=== PATIENT | male | born 1990 | race Hispanic/Latino ===

== ENCOUNTER 2023-01-21 13:20 | Emergency (ER) | payer OTHER, SELFPAY ==
[2023-01-21 13:23] VITALS: BP 130/84; PULSE 84; RESP 18; TEMP 36.6; O2SAT 98; BMI 19.2
[2023-01-21] MEDS: LIDOCAINE/PRILOCAINE 5 GM TOP (14:04)
[2023-01-21] MEDS: TET,DIPH,PERTUSS(ACELL),VAC/PF 0.5 ML SYRINGE IM (14:05)
[2023-01-21] MEDS: LIDOCAINE 2% INJ SDV 5ML 5 ML (14:11)
--- NOTE | 2023-01-21 14:20 | ED_ITS ---
HPI - Wound/Laceration <Kriss Ghotra PA-C - Last Filed: 01/21/23 15:56> General Chief Complaint: Wound/Laceration Stated Complaint: [facility] Time Seen by Provider: 01/21/23 13:29 Source: patient Mode of arrival: Ambulatory History of Present Illness HPI narrative: 32-year-old male presents with concern for facial injury sustained at work. Patient works for a [employer] and he was pounding and approximately 1/2 inch diameter approximately 6 ft tall metal breanne into the ground with a fence post tool. On 1 of the pounding hits he missed capturing the top of the breanne and it smashed forward and caught his eyebrow just below his right eyebrow causing a laceration. He states that the metal breanne is slightly tapered at the top and not flat. He does have some pain at the location of the injury but states he has not had any blurry vision and has been moving his eyes normally. Denies numbness or tingling of the face, dizziness, lightheadedness, global headache or vomiting or any other symptoms. Presents today with L and I paperwork. Patient acknowledges nausea just prior to initiating repair. Onset (ago): hour(s) (1-2) Location: face Patient tetanus UTD: No (provided today) Associated symptoms: nausea/vomiting (nausea only) Related Data Allergies Allergy/AdvReac Type Severity Reaction Status Date / Time No Known Drug Allergies Allergy Verified 01/21/23 13:23 Review of Systems <Kriss Ghotra PA-C - Last Filed: 01/21/23 15:56> Review of Systems Narrative: See HPI Patient History <Kriss Ghotra PA-C - Last Filed: 01/21/23 15:56> Social History Smoking Status: Current some day smoker Smoking Status: Current some day smoker tobacco type: cigarettes and vaping Substance Use Type: does not use Exam <Kriss Ghotra PA-C - Last Filed: 01/21/23 15:56> Narrative Exam Narrative: GENERAL: 32 year old patient appears stated age. Well-developed patient, in mild distress. HEAD: There is a 1 cm horizontal laceration with bleeding controlled with a slight upside down Nike swoosh at the medial aspect; located just inferior to the patient's right medial eyebrow. It is superior to the eyelid and does not penetrate to the globe. Otherwise Atraumatic. Normocephalic. Facial bones are nontender without bruising or deformity EYES: Pupils equal round and reactive. Extraocular motions intact. No scleral icterus. No injection or drainage. ENT: Nasal bones are nontender Nose without bleeding, purulent drainage. Throat without erythema, tonsillar hypertrophy or exudate. Airway patent. NECK: Trachea midline. Non tender CARDIOVASCULAR: Regular rate and rhythm without murmurs, gallops, or rubs. RESPIRATORY: Clear to auscultation. Breath sounds equal bilaterally. No wheezes, rales, or rhonchi. EXTREMITIES: No edema or joint tenderness. NEURO: AOx3. Cranial nerves II-XII intact SKIN: See head. No rash or erythema of visible areas Initial Vital Signs Initial Vital Signs: Vital Signs Temperature 97.9 F 01/21/23 13:23 Pulse Rate 84 01/21/23 13:23 Respiratory Rate 18 01/21/23 13:23 Blood Pressure 130/84 01/21/23 13:23 Pulse Oximetry 98 01/21/23 13:23 Oxygen Delivery Method Room Air 01/21/23 13:23 <Liane Pena MD - Last Filed: 01/21/23 16:24> Initial Vital Signs Initial Vital Signs: Vital Signs Temperature 97.9 F 01/21/23 13:23 Pulse Rate 84 01/21/23 13:23 Respiratory Rate 18 01/21/23 13:23 Blood Pressure 130/84 01/21/23 13:23 Pulse Oximetry 98 01/21/23 13:23 Oxygen Delivery Method Room Air 01/21/23 13:23 Procedures <Kriss Ghotra PA-C - Last Filed: 01/21/23 15:56> Laceration Repair Laceration 1: Time of procedure: 14:40 Site: face (inferior Left medial eyebrow) Size (cm): 1 Description: linear (curvilinear) Depth: simple, single layer Local Anesthetic: lidocaine 2% and other anesthetic (topical lidocaine/prilocaine) Amount of anesthesia used (mL): 2.5 Pre-repair: wound explored and irrigated extensively Skin layer closed with: nylon Skin layer suture size: 6-0 Number of sutures: 4 Technique: simple, interrupted Course <Kriss Ghotra PA-C - Last Filed: 01/21/23 15:56> Orders Ordered: Discontinued Medications Diphtheria/Tetanus/Acell Pertussis (Tet,Diph,Pertuss(Acell),Vac/Pf 0.5 Ml Syringe) 0.5 ml IM .ONCE ONE Stop: 01/21/23 13:30 Last Admin: 01/21/23 14:05 Dose: 0.5 ml Documented By: DAYAN Lidocaine HCl (Lidocaine 2% Inj Mdv 20ml) 5 ml SUBCUT NOW ONE Stop: 01/21/23 13:31 Last Admin: 01/21/23 14:05 Dose: Not Given Documented By: FRACISCO Lidocaine/Prilocaine (Lidocaine/Prilocaine 5 Gm) 5 gm TOP NOW ONE Stop: 01/21/23 13:31 Last Admin: 01/21/23 14:04 Dose: 5 gm Documented By: DAYAN Ondansetron HCl (Ondansetron 4 Mg Odt) 4 mg SL NOW ONE Stop: 01/21/23 14:31 Last Admin: 01/21/23 14:33 Dose: 4 mg Documented By: DAYAN Vital Signs Vital signs: Vital Signs - 8 hr 01/21/23 13:23 01/21/23 15:40 Temperature 97.9 F Pulse Rate 84 83 Respiratory Rate 18 16 Blood Pressure 130/84 116/71 Pulse Oximetry 98 97 Oxygen Delivery Method Room Air Room Air <Liane Pena MD - Last Filed: 01/21/23 16:24> Orders Ordered: Discontinued Medications Diphtheria/Tetanus/Acell Pertussis (Tet,Diph,Pertuss(Acell),Vac/Pf 0.5 Ml Syringe) 0.5 ml IM .ONCE ONE Stop: 01/21/23 13:30 Last Admin: 01/21/23 14:05 Dose: 0.5 ml Documented By: MPO Lidocaine HCl (Lidocaine 2% Inj Mdv 20ml) 5 ml SUBCUT NOW ONE Stop: 01/21/23 13:31 Last Admin: 01/21/23 14:05 Dose: Not Given Documented By: FRACISCO Lidocaine/Prilocaine (Lidocaine/Prilocaine 5 Gm) 5 gm TOP NOW ONE Stop: 01/21/23 13:31 Last Admin: 01/21/23 14:04 Dose: 5 gm Documented By: DAYAN Ondansetron HCl (Ondansetron 4 Mg Odt) 4 mg SL NOW ONE Stop: 01/21/23 14:31 Last Admin: 01/21/23 14:33 Dose: 4 mg Documented By: DAYAN Vital Signs Vital signs: Vital Signs - 8 hr 01/21/23 13:23 01/21/23 15:40 Temperature 97.9 F Pulse Rate 84 83 Respiratory Rate 18 16 Blood Pressure 130/84 116/71 Pulse Oximetry 98 97 Oxygen Delivery Method Room Air Room Air MDM - Wound/Laceration <Kriss Ghotra PA-C - Last Filed: 01/21/23 15:56> Differential Diagnosis Differential diagnosis: Likely laceration, avulsion of skin and other (closed head injury) MDM Narrative Medical decision making narrative: This is a generally healthy well-appearing 32-year-old male who presents concern for an injury sustained at work today when a metal proximally 1/2 inch diameter post/pull that he was hammering into the ground with a tool jammed into his eyebrow causing a laceration. Patient does have some nausea but otherwise has no symptoms suggesting a significant head injury that would require imaging. Has had no vomiting no vision changes has no generalized headache dizziness lightheadedness neck pain or other concerning symptoms. He presents with L and I paperwork which is completed during the patient's visit. Claim #[id number]. Four sutures placed as above and procedures. Patient is advised to return for suture removal or present to L and I provider or PCP if this is L and I for follow-up wound check and suture removal. Patient's nausea was completely resolved with 1 sublingual Zofran. Work note advising light duty tomorrow and may return to normal duty the following day. Return precautions provided, follow-up plan discussed, all questions answered. Discharge Plan Departure Patient Disposition: Home Clinical Impression: Injury while performing manual work Laceration of eyebrow, right Qualifiers: Encounter type: initial encounter Qualified Code(s): S01.111A - Laceration without foreign body of right eyelid and periocular area, initial encounter Instructions: How to Care for a Laceration After Repair Activity Restrictions/Additional Instructions: *You have been diagnosed with [laceration of your right eyebrow sustained at work] *What to do: *Please continue to take your regular medications as directed. [ ] New medication prescriptions sent to your pharmacy: [ ] [ ] New medication written as a paper prescription [X ] No new medications given *Please follow up with your primary care provider in 2-3 days, call for an appointment. Let them know you were seen in the Emergency Department and that we ask that you be seen in follow up. We will electronically transmit a record of today's note if your PCP is in our system. Thank you for letting us be part of your care today in the emergency department. You sustained a laceration just un junior the eyebrow of your right eye today at your job site and completed L and I paperwork today during your visit. You will need to have your 4 stitches that we placed today removed in 5-8 days. They are not dissolvable. I recommend use Tylenol and ibuprofen you can use ice on and off over the area today if it is helpful for pain. You can come back to this emergency department or see your primary care provider or any provider that does L and I follow-up work. *If you do not have a primary care provider please contact the [facility] Resource line at [phone]. They will ask some questions about your medical history and help get you set up with a doctor in the community. *Return to Emergency Department if you should have any new, worsening or concerning symptoms, such as severe headache, dizziness, vision change, lightheadedness, [fever greater than 101 F, shaking chills, worsening pain, persistent vomiting or other bothersome symptoms] Referrals: Miscellaneous,Doctor, [Primary Care Provider] - Stand Alone Forms: Patient Portal/API, Work Release Note ED Sign-out <Liane Pena MD - Last Filed: 01/21/23 16:24> Cosign ED Attending Irajature Attestation: I did not see this patient. I was available all times for consultation.
[2023-01-21] MEDS: ONDANSETRON 4 MG ODT SL (14:33)
[2023-01-21 15:40] VITALS: BP 116/71; PULSE 83; RESP 16; O2SAT 97
== END 2023-01-21 15:41 | disposition home or self-care (01) ==
PROVIDERS: Emergency Provider Student in an Organized Health Care Education/Training Program
DX: S01.111A Laceration without foreign body of right eyelid and periocular area, initial encounter (principal); X58.XXXA Exposure to other specified factors, initial encounter; Y99.0 Civilian activity done for income or pay; Z23 Encounter for immunization
CPT/HCPCS: 12011; 90471; 99283; 99284; 90715